=== PATIENT | female | born 1985 | race Caucasian/White ===

== ENCOUNTER 2018-04-30 07:00 | Inpatient (IN) | payer OTHER, SELFPAY ==
[2018-04-30 07:39] VITALS: BMI 28.8
[2018-04-30] MEDS: Lactated Ringers 1,000 ML 50 ML IV ×2 (07:50→11:53)
[2018-04-30 08:07] LABS: Hematocrit 36.5 % (37-47); Hemoglobin 12.4 g/dl (12.0-15.0); Mean Corpuscular Hgb 33.7 pg (27.0-32.0); Mean Corpuscular Volume 99.2 fL (81-99); Mean Platelet Vol. 10.4 fl (6.2-12.0); Platelet Count 172 K/mm3 (150-450); RBC Distribution Width SD 46.8 fl (35.1-43.9); Red Blood Count 3.68 M/mm3 (4.2-5.4); White Blood Count 11.5 K/mm3 (4.4-11.0)
[2018-04-30 08:08] LABS: Scan Indicated on CBC? Y/N NO
[2018-04-30] MEDS: Oxytocin 30 units/NS 500 ml 30 UNITS/500 ML IV.SOLN IV (08:16)
--- NOTE | 2018-04-30 09:12 | PCM.HP.OB ---
History Date of Admission: 04/30/18 Final LILIANA: 04/23/18 Final LILIANA Source: US <20 weeks Gestational age: 41 Weeks and 0 Days History of this : This is a 32 year-old, G [], P [], at 41 weeks gestational age. Allergies Penicillins Allergy (Verified 04/30/18 07:38) Hives Home Medications: Home Medications Vits [Prenatabs FA ] 1 tablet PO DAILY 11/01/15 Smoking Status: Never smoker Alcohol: None Heart Tracin's reactive TOCO Analysis: ctxs irreg, q 3-5' on 4 miu/minute Pitocin History Past Pregnancies: Past Pregnancies Delivery Date Name GA/Weeks Outcome Route Weight Infant Gender Labor Length Anesthesia Delivery Location Provider FOB Review of Systems Constitutional: Denies: Chills, Fever, Weight Change Cardiovascular: Denies: Chest Pain, Palpitations Gastrointestinal: Denies: Abdominal Pain, Nausea, Vomiting Genitourinary: Denies: Dysuria Musculoskeletal: Denies: Joint Pain, Joint Tenderness Skin: Denies: Rash, Wounds Neurological: Denies: Numbness, Tingling, Focal weakness Psychiatric: Denies: Anxiety, Depression, Homicidal Ideations, Suicidal Ideations Hematologic/ Lymphatic: Denies: Easy Bruising, Easy Bleeding Physical Exam General: Alert, Oriented x3, No apparent distress HEENT: Atraumatic, Normocephalic. Negative for: Thyromegaly, Lymphadenopathy Cardiovascular: Regular rate, Regular Rhythm Lungs: Clear to auscultation Abdomen: Bowel Sounds Present, Gravid Neurological: Deep Tendon Reflexes 2+/4 and Symmetrical, Neuro grossly intact VAMP SEAMER: Normal external genitalia. Negative for: Vulvar lesions Estimated gestational size: Appropriate for gestational size Presentation: Cephalic Cervix Dilation (cm): 4 Station: -2 Effacement (%): 75 Assessment/Plan This is a 32 year-old, G [], P [], at 41 weeks gestational age. Here for labor induction for postdates status GBBS neg Anticipate
--- NOTE | 2018-04-30 09:16 | HP.PCM_ITS ---
History Date of Admission: 04/30/18 Final LILIANA: 04/23/18 Final LILIANA Source: US <20 weeks Gestational age: 41 Weeks and 0 Days History of this : This is a 32 year-old, G [], P [], at 41 weeks gestational age. Allergies Penicillins Allergy (Verified 04/30/18 07:38) Hives Home Medications: Home Medications Vits [Prenatabs FA ] 1 tablet PO DAILY 11/01/15 Smoking Status: Never smoker Alcohol: None Heart Tracin's reactive TOCO Analysis: ctxs irreg, q 3-5' on 4 miu/minute Pitocin History Past Pregnancies: Past Pregnancies Delivery Date Name GA/Weeks Outcome Route Weight Infant Gender Labor Length Anesthesia Delivery Location Provider FOB Review of Systems Constitutional: Denies: Chills, Fever, Weight Change Cardiovascular: Denies: Chest Pain, Palpitations Gastrointestinal: Denies: Abdominal Pain, Nausea, Vomiting Genitourinary: Denies: Dysuria Musculoskeletal: Denies: Joint Pain, Joint Tenderness Skin: Denies: Rash, Wounds Neurological: Denies: Numbness, Tingling, Focal weakness Psychiatric: Denies: Anxiety, Depression, Homicidal Ideations, Suicidal Ideations Hematologic/ Lymphatic: Denies: Easy Bruising, Easy Bleeding Physical Exam General: Alert, Oriented x3, No apparent distress HEENT: Atraumatic, Normocephalic. Negative for: Thyromegaly, Lymphadenopathy Cardiovascular: Regular rate, Regular Rhythm Lungs: Clear to auscultation Abdomen: Bowel Sounds Present, Gravid Neurological: Deep Tendon Reflexes 2+/4 and Symmetrical, Neuro grossly intact IRS AGENT: Normal external genitalia. Negative for: Vulvar lesions Estimated gestational size: Appropriate for gestational size Presentation: Cephalic Cervix Dilation (cm): 4 Station: -2 Effacement (%): 75 Assessment/Plan This is a 32 year-old, G [], P [], at 41 weeks gestational age. Here for labor induction for postdates status GBBS neg Anticipate
--- NOTE | 2018-04-30 12:18 | PCM.HPOB.BLA ---
Progress Note LABOR PROGRESS NOTES. Stopped in to see patient at 0900 today, and Pitocin was at 4miu/minute. Ctxs are irreg q 3-5' and barely felt. FHR is category I. No VE done. plan was to await regular, moderate contractions. At 1215 returned to see pt who is receiving an epidural currently. FHR remains category I. Pitocin was up to 12 miu/minute, and patient began to feel ctxs so requested epidural. Will perform AROM once patient is comfortable.
[2018-04-30] MEDS: fentaNYL-bupivacaine (epidural) 100 ML BAG EPIDURAL (12:20)
[2018-04-30 13:04] LABS: HIV - WCH Non-Reactive (Nonreactive)
[2018-04-30 13:57] LABS: Chlamydia Trachomatis by PCR Negative (Negative); Neisserai gonorrhoeae by PCR Negative (Negative); Probe Check PASS; Sample Adequacy Control PASS; Specimen Processing Control PASS
[2018-04-30] MEDS: Oxytocin 30 units/NS 500 ml 30 UNITS/500 ML IV.SOLN 167 UNITS IV (15:05)
--- NOTE | 2018-04-30 15:29 | PCM.OB.VAG ---
Vaginal Delivery Maternal Presentation: Medically Indicated Induction Method of Induction: Pitocin Medical Reason for Induction: Post term Amniotic Membrane Rupture Type: Artificial Amniotic Fluid Description: Clear Final LILIANA: 04/23/18 Final LILIANA Source: US <20 weeks Gestational age: 41 Weeks and 0 Days Presentation: Vertex, ANNIE Placental Delivery Description: Expressed Placenta Disposition: [facility] Cord Vessel Description: 3 Vessels Cord Entanglement: None Drain: Luna to straight drain Estimated Blood Loss: 250 A gender: Male (1 minute): 8 (5 minute): 9 Episiotomy Description: None Laceration: Midline, Perineal Extension/lac, 1st degree Medications given after delivery: IV Pitocin Complications: None - Nuchal posterior arm, delivered before shoulders.
[2018-04-30] MEDS: 0.9% Saline Lock 10 ML Syringe IV (16:06)
[2018-04-30 17:44] VITALS: BP 127/71; PULSE 97; RESP 18; TEMP 37.2; O2SAT 98
[2018-04-30 19:35] VITALS: BP 133/70; PULSE 80; RESP 16; TEMP 36.9
[2018-05-01 00:05] VITALS: BP 122/69; PULSE 68; RESP 16; TEMP 36.7
[2018-05-01 03:49] VITALS: BP 116/62; PULSE 72; RESP 18; TEMP 37.3
[2018-05-01 06:06] LABS: Hematocrit 34.9 % (37-47); Hemoglobin 11.9 g/dl (12.0-15.0); Mean Corp Hgb Conc 34.1 g/gl (32-36); Mean Corpuscular Hgb 34.1 pg (27.0-32.0); Mean Platelet Vol. 10.6 fl (6.2-12.0); Platelet Count 164 K/mm3 (150-450); RBC Distribution Width SD 47.2 fl (35.1-43.9); Red Blood Count 3.49 M/mm3 (4.2-5.4); White Blood Count 13.6 K/mm3 (4.4-11.0)
[2018-05-01 06:07] LABS: Scan Indicated on CBC? Y/N NO
[2018-05-01 08:30] VITALS: BP 106/64; PULSE 92; RESP 16; TEMP 37.1; O2SAT 97
--- NOTE | 2018-05-01 09:10 | PCM.PN.OB ---
- Physical Exam General: Alert, Oriented x3, Cooperative, No apparent distress HEENT: Atraumatic, PERRLA, EOMI, Normocephalic Cardiovascular: Regular rate, No murmurs Abdomen: Bowel Sounds Present, Soft, Non Tender - uterus firm at umb-2cm Extremities: No edema Musculoskeletal: No Tenderness to Palpation of Joints or Extremities Psych/Mental Status: Normal Affect, Appropriate Vital Signs Temp Pulse Resp BP Pulse Ox 98.8 F 92 16 106/64 97 05/01/18 08:30 05/01/18 08:30 05/01/18 08:30 05/01/18 08:30 05/01/18 08:30 Oxygen Delivery Method Room Air Weight: 76.204 kg Body Mass Index (BMI) 28.8 Intake and Output for Last 24 Hours 04/29/18 04/30/18 05/01/18 23:59 23:59 23:59 Intake Total 3218 / 3218 Output Total 1200 / 1200 Balance 2017 Laboratory Tests Past 24 Hrs 04/30/18 04/30/18 04/30/18 07:50 07:50 08:43 WBC RBC Hgb Hct MCV MCH MCHC RDW RDW Differential Plt Count MPV Chlam trachomat DNA PCR Negative HIV 1&2 Antibody Non-Reactive N.gonorrhoeae DNA (PCR) Negative Blood Type O POSITIVE Antibody Screen NEGATIVE 05/01/18 05:25 WBC 13.6 H RBC 3.49 L Hgb 11.9 L Hct 34.9 L MCV 100.0 H MCH 34.1 H MCHC 34.1 RDW 13.0 RDW Differential 47.2 H Plt Count 164 MPV 10.6 Chlam trachomat DNA PCR HIV 1&2 Antibody N.gonorrhoeae DNA (PCR) Blood Type Antibody Screen Medical Necessity - Tobacco Use Smoking Status: Never smoker Assessment/Plan This is a 32 year-old, G [], P [], at 41 weeks gestational age. s/p uncomplicated after Pitocin induction. male 8lb 11oz, Apgars 8&9 Home today . No meds desired.
--- NOTE | 2018-05-01 09:14 | PCM.DCVAG ---
Discharge Activity: Return to Normal Activity - slowly May resume sexual activity in: 4-6 weeks Call your doctor if you observe: Fever of 101 or Higher, Inability to urinate, Using more than one pad per hour, Calf discomfort, Uncontrolled pain Additional Instructions: If you experience any of the following, contact your healthcare provider. Bleeding that soaks a pad every hour for 2 hours Fever 100.4 or higher Unrelieved incision or abdominal pain Swelling, redness, discharge or bleeding from your incision or episiotomy site Your incision begins to separate Problems urinating (including inability to urinate or burning while urinating). Visual changes Severe headache Flu-like symptoms Pain or redness in one of both of your breasts Pain, warmth, tenderness or swelling in your legs, especially the calf area Frequent nausea and vomiting Symptoms of depression or anxiety If you experience any of the following, call 911 or go to the nearest Emergency Room. Chest pain Problems breathing Seizure activity Partial or complete paralysis of a body part, slurred speech, weakness or drooping of the face, or a sudden inability to walk or hold your balance Allergies/Adverse Reactions: Allergies Penicillins Allergy (Verified 04/30/18 07:38) Hives Medications to take at Discharge Vits [Prenatabs FA ] 1 tablet PO DAILY 11/01/15 Please Follow Up With: Omaira Camp MD When: 6wks Primary Care Physician: Radha Darnell PA [Primary Care Provider] - Test Results: Test results from this visit will be discussed in further detail at your follow-up appointment, if applicable.
--- NOTE | 2018-05-01 09:17 | DCINST_ITS ---
Discharge Activity: Return to Normal Activity - slowly May resume sexual activity in: 4-6 weeks Call your doctor if you observe: Fever of 101 or Higher, Inability to urinate, Using more than one pad per hour, Calf discomfort, Uncontrolled pain Additional Instructions: If you experience any of the following, contact your healthcare provider. * Bleeding that soaks a pad every hour for 2 hours * Fever 100.4 or higher * Unrelieved incision or abdominal pain * Swelling, redness, discharge or bleeding from your incision or episiotomy site * Your incision begins to separate * Problems urinating (including inability to urinate or burning while urinating) . * Visual changes * Severe headache * Flu-like symptoms * Pain or redness in one of both of your breasts * Pain, warmth, tenderness or swelling in your legs, especially the calf area * Frequent nausea and vomiting * Symptoms of depression or anxiety If you experience any of the following, call 911 or go to the nearest Emergency Room. * Chest pain * Problems breathing * Seizure activity * Partial or complete paralysis of a body part, slurred speech, weakness or drooping of the face, or a sudden inability to walk or hold your balance Allergies/Adverse Reactions: Allergies Penicillins Allergy (Verified 04/30/18 07:38) Hives Medications to take at Discharge Vits [Prenatabs FA ] 1 tablet PO DAILY 11/01/15 Please Follow Up With: Omaira Camp MD When: 6wks Primary Care Physician: Radha Darnell PA [Primary Care Provider] - Test Results: Test results from this visit will be discussed in further detail at your follow- up appointment, if applicable.
[2018-05-01 12:00] VITALS: BP 117/66; PULSE 84; RESP 14; TEMP 36.8; O2SAT 97
[2018-05-01 15:31] VITALS: BP 115/62; PULSE 80; RESP 16; TEMP 36.9; O2SAT 98
--- NOTE | 2018-05-01 16:30 | CASEMGMT ---
Social Work Brief Assessment - Labor and Delivery Unit Date of Referral/Notification: 04/30/2018 Time of Referral: 1825 Referred By: Dr. Moreau Reason for Referral: maternal history of depression Date of Intervention: 05/01/2018 Informant: Medical record and patient/mother of baby (MOB) Reshma Dumont History: EAGLE is a 32 years old female, delivering 2nd child, Dale Dumont, this admission. MOB has an older child, Jay Dumont (born 3.16[birth year]16) at home. The Father of baby, to both children, is Chris Dumont, to whom MOB is . 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 FOB works as a [employer]. MOB denies any safety concerns at home or with FOB. MOB reports good support from FOB and from MOBs mother. MOB reports history of depression after Jay was born, mostly experiencing anxiety. No reports of any thoughts, plans, intent for suicide at that time, nor any currently or during . MOB denies any history of substance use or abuse. Denies any type of agency involvement. Assessment: MOB reports to feel better this time around, feels more prepared and to know what to expect. MOB reports her mother is a strong support and one that MOB can talk to if needed. MOB reports will have help at home going from family, reports to have needed supplies for the baby as well. MOB listened to education on mood and anxiety disorders, risk factors, and importance of seeking out help and support if needed. MOB accepting of depression packet today, including local and online supports in case MOB wants or needs to pursue extra support down the road. MOB reports to feel good about the baby, and to love the baby. MOB denies any concerns with home going. MOB pleasant, cooperative, held good eye contact during social work visit. No reports by nursing of any concerns relating to mother/professor of early childhood education and bonding. Plan: MOB and baby to home when ready for discharge. Resources for depression provide, including both local and online supports. No further needs requested or indicated. -MAYA Johnson, [employer]
--- NOTE | 2018-07-23 17:44 | PCM.HPOB.BLA ---
History and Physical Date of Admission: 04/30/18 ADDENDUM TO VAGINAL DELIVERY NOTE Patient was encouraged to push and delivered the infant spontaneously over a midline tear, with a posterior nuchal arm delivered before shoulders. The thirs stage was managed actively for delivery of a complete placenta. The tear -1st degree midline was repaired in standard fashion with #3-0 Vicryl for good hemostasis. Patient tolerated the delivery very well.
== END 2018-05-01 17:00 | disposition home or self-care (01) | DRG 775 ==
PROVIDERS: Admitting Provider Obstetrics & Gynecology Gynecology; Family Provider Physician Assistant; PCP Physician Assistant; Visit Provider Obstetrics & Gynecology Gynecology
DX: O48.0 Post-term pregnancy (principal); Z3A.41 41 weeks gestation of pregnancy; O70.0 First degree perineal laceration during delivery; O69.81X0 Labor and delivery complicated by cord around neck, without compression, not applicable or unspecified; Z37.0 Single live birth
CPT/HCPCS: 59025; 59050; 85027; 86703; 86850; 86900; 87491; 87591; 99218; J7120; A4216; G0378

== ENCOUNTER 2018-05-05 10:30 | Outpatient (CLI) | payer OTHER, SELFPAY | END 2018-05-05 11:10 | disposition home or self-care (01) | LOC: WPOUT 10:39 → WP 10:40 | PROVIDERS: Family Provider Physician Assistant; PCP Physician Assistant; Visit Provider Obstetrics & Gynecology Gynecology | DX: Z39.1 Encounter for care and examination of lactating mother (principal) | CPT/HCPCS: 96152 ==

== ENCOUNTER 2018-05-19 00:49 | Emergency (ER) | payer OTHER, SELFPAY ==
[2018-05-19 00:51] VITALS: BP 119/77; PULSE 65; RESP 17; TEMP 36.7; O2SAT 100; BMI 23.8
--- NOTE | 2018-05-19 01:05 | CT_ITS ---
STUDY: CT ABDOMEN AND PELVIS WITHOUT CONTRAST REASON FOR EXAM: Female, 32 years old. Right-sided flank pain and urinary frequency, status post delivery 2 weeks ago RADIATION DOSAGE (If Supplied By Facility): CTDIvol = ( 6.64 ) mGy, DLP = ( 305.44 ) mGycm TECHNIQUE: Transaxial images were obtained from the dome of the diaphragm to the symphysis pubis without oral contrast, and without intravenous contrast. Sagittal and coronal images were reconstructed. Individualized dose optimization techniques were used for this CT. COMPARISON: None. FINDINGS: The visualized lung bases are unremarkable. The visualized portions of the heart are within normal limits. Normal liver. Normal gallbladder and extrahepatic biliary system. Normal spleen. Normal pancreas. Normal bilateral adrenal glands. 5 mm stone in the distal right ureter at the level of the ureterovesical junction. There are changes of severe acute obstructive uropathy on the right. Severe right hydroureter is present with a ureter diameter of up to 2.7 cm. Multiple nonobstructing left renal stones, the largest measuring 5 mm. Normal visualized stomach. Normal small intestine. Normal colon. The appendix is visualized and appears normal. Normal abdominal aorta. Normal inferior vena cava. Normal retroperitoneum. Normal urinary bladder. Retroverted uterus. Normal abdominal wall. Normal osseous structures. CT/Abdomen/Pelvis without Cont IMPRESSION: 5 mm stone in the distal right ureter at the level of the ureterovesical junction. There are changes of severe acute obstructive uropathy on the right. Severe right hydroureter is present with a ureter diameter of up to 2.7 cm. Electronically Signed: Gorge Mercado MD at 1:55 EDT Tel , Service support ,
[2018-05-19] MEDS: Ondansetron 4 MG/2 ML Vial IV (01:09)
[2018-05-19] MEDS: Ketorolac 30 MG/ML Syringe IV (01:10)
[2018-05-19 01:13] LABS: Bacteria 0 SEEN /hpf (None Seen); Mucous, Urine 0 SEEN /hpf (<or=2+); Squamous Epithelial Cells - UA 0 SEEN /hpf (5-10)
--- NOTE | 2018-05-19 01:13 | ED.DCSUM_ITS ---
- ER Visit Summary Date of Service: 05/19/18 Chief Complaint: Right flank pain History of Present Illness: The patient is a 32 F who presents with a right- sided flank pain of 2-3-hour duration. Patient states it was sudden onset sharp and stabbing in nature wrapping slightly to the front. She notes that she feels the need to urinate frequently but does not typically have any urine come out. No history of kidney stones. She denies dysuria. No fevers. Does note some slight nausea. Patient is 2 weeks and is breast-feeding. Physical Examination: Afebrile vital signs are stable Gen: Well-nourished well-developed Head: Normocephalic atraumatic Eyes: Perrl EOMI ENT: TMs clear no rhinorrhea moist mucous membranes Neck: Supple no lymphadenopathy no JVD nontender CVS: Regular rate rhythm no murmurs normal S1-S2 Respiratory: No distress clear to auscultation bilaterally chest nontender Abdomen: Soft nontender nondistended normal bowel sounds no masses Back: Mild right CVA tenderness Extremity: Nontender no edema Skin: Normal color no rash Neuro: alert orientated ?3 CN II-XII intact normal strength sensation reflexes gait cerebellar Psych: Normal affect normal mood Test Results: CBC with a leukocytosis at 11. Creatinine at 1. Urinalysis with no overt infection -5-10 red blood cells and 5-10 white blood cells 0 bacteria 1+ yeast. CT demonstrates severe hydronephroureter on the right due to ureteral stone. Emergency Department Course and Treatment: Patient received Toradol and Zofran. I spoke with the patient regarding treatment. Patient was advised that she needs to see urology as soon as possible and unfortunately [facility] We talked about possibly transferring to [facility]. Being that there is a at home we will attempt to do this as an outpatient with early follow-up. Patient was given return instructions with a low threshold for need to return. She wishes to avoid medications that would be harmful in breastmilk. Patient got good relief with the Toradol here and I will prescribe that. Impression: 1. Right 5 mm ureterallithiasis 2. Severe hydronephroureter This note was generated with [employer] dictation software. It may contain incorrect words, spelling, and punctuation that were not noted in review of the chart prior to signing ED Disposition - Plan for ED Patient: Disposition: Home or Assisted Living Chief Complaint: Flank Pain Instructions: ED Stone Renal W Colic Prescriptions: Ondansetron [Zofran Odt] 4 mg PO 4X/DAY PRN PRN #12 tab.rapdis PRN Reason: Nausea Ketorolac [Toradol] 10 mg PO Q6H PRN #12 tab PRN Reason: Pain Referrals: Manuel Zuniga MD [STAFF PHYSICIAN] - As soon as possible Becka Newman MD [STAFF PHYSICIAN] - As soon as possible Additional Instructions: If you cannot ensure early follow-up please return to the emergency department If your pain is not controlled or you please return to the emergency department
[2018-05-19 01:21] LABS: Color, Urine Yellow (Yellow); Glucose, Dipstick Normal (Normal); Ketone-Dipstick Negative (Negative); Leukocyte Esterase-Dipstick 500 /ul (Negative); Nitrite-Dipstick Negative (Negative); Occult Blood-Urine 250 /ul (Negative); Protein-Dipstick 15 mg/dl (Negative); Urine Bilirubin Dipstick Negative (Negative); Urine Clarity Sl. Cloudy (Clear); Urine Urobilinogen Normal (Normal)
[2018-05-19 01:22] LABS: Internal QC Validated? YES +Cl - CLEAR BKGD; Pregnancy, Urine Negative Negative
[2018-05-19 01:29] LABS: Red Blood Cells-Urine 5-10 SEEN /hpf (0-5); White Blood Cells 5-10 SEEN /hpf (0-5); Yeast-Urine 1+ /hpf (None Seen)
[2018-05-19 02:06] LABS: Absolute Lymphocyte Count 2.23 X10^3/ul (0.83-4.51); Basophil# 0.02 X10^3/uL; Basophil% 0.2 % (0-1); Eosinophil# 0.29 X10^3/uL; Eosinophils% 2.5 % (0-5); Hemoglobin 14.1 g/dl (12.0-15.0); Lymphocyte # 2.23 X10^3/ul (4.0); Lymphocyte % 19.3 % (19-41); Mean Corp Hgb Conc 33.6 g/gl (32-36); Mean Corpuscular Hgb 33.3 pg (27.0-32.0); Mean Corpuscular Volume 99.3 fL (81-99); Mean Platelet Vol. 10.2 fl (6.2-12.0); Monocyte# 1.01 X10^3/uL; Monocyte% 8.8 % (0-10); Neutrophil # 7.95 X10^3/uL (2.7-7.7); Neutrophil % 68.9 % (47-70); POSITIVE COUNT NO; POSITIVE DIFFERENTIAL NO; POSITIVE MORPHOLOGY NO; Platelet Count 205 K/mm3 (150-450); RBC Distribution Width CV 11.8 % (11.6-14.6); RBC Distribution Width SD 42.6 fl (35.1-43.9); Red Blood Count 4.23 M/mm3 (4.2-5.4); White Blood Count 11.5 K/mm3 (4.4-11.0)
[2018-05-19 02:14] LABS: Anion Gap 8 (5-15); BUN 20 mg/dL (7-18); Calcium,Total 8.5 mg/dL (8.5-10.1); Chloride 107 mmol/L (98-107); EST Glomerular Filtration Rate 68 mL/min (>60); Est Glom Filt Rate - Afr Amer 83 mL/min (>60); Estimated Creatinine Clearance 70.39 ml/min; Glucose 99 mg/dL (74-106); Potassium 3.6 mmol/L (3.5-5.1); Sodium Level 140 mmol/L (136-145)
[2018-05-19] MEDS: Ketorolac 10 MG Tablet PO (02:45)
[2018-05-19 02:48] VITALS: BP 108/68; PULSE 64; RESP 17; O2SAT 98
--- NOTE | 2018-05-19 02:50 | ED.RN ---
IV DC'ED, CATHETER INTACT, SMALL GAUZE DRESSING PLACED. DISCHARGE INSTRUCTIONS GIVEN TO AND REVIEWED WITH PATIENT, PATIENT DENIES QUESTIONS OR CONCERNS AND VOICES UNDERSTANDING OF DISCHARGE INSTRUCTIONS. PATIENT AMBULATES OUT OF ROOM WITHOUT DIFFICULTY.
== END 2018-05-19 02:51 | disposition home or self-care (01) ==
PROVIDERS: Emergency Provider Emergency Medicine; Family Provider Physician Assistant; PCP Physician Assistant
DX: O90.89 Other complications of the puerperium, not elsewhere classified (principal); N13.2 Hydronephrosis with renal and ureteral calculous obstruction
CPT/HCPCS: 74176; 80048; 81001; 81025; 85025; 99284; J7030; J2405

== ENCOUNTER → 2018-06-09 15:04 | Outpatient (CLI) | payer OTHER, SELFPAY ==
--- NOTE | 2018-06-09 15:06 | RAD_ITS ---
STUDY: X-RAY - ABDOMEN/PELVIS REASON FOR EXAM: Female, 32 years old. Kidney stone TECHNIQUE: Single AP view of the abdomen / pelvis. COMPARISON: CT May 19, 2018 FINDINGS: Normal visualized lung bases. There is an unremarkable bowel gas pattern. There is no demonstrated free abdominal air. The visualized liver, spleen and kidneys are grossly normal in size and morphology. There is small increased density over the left kidney consistent with stone seen on CT. Stone seen in the distal ureter on CT is not appreciated. There is overlying stool in the right lower pelvis. Normal visualized osseous structures. RAD/Abdomen Single View IMPRESSION: Small left abdominal calcification. Electronically Signed: Tejas Garcia MD at 15:26 EDT , Service support ,
== END ==
PROVIDERS: Family Provider Physician Assistant; PCP Physician Assistant; Referring Provider Nurse Practitioner Adult Health; Visit Provider Nurse Practitioner Adult Health
DX: N20.0 Calculus of kidney (principal)
CPT/HCPCS: 74018

== ENCOUNTER 2020-02-03 18:52 | Inpatient (IN) | payer OTHER, SELFPAY ==
[2020-02-03] VITALS (8 sets, daily range): BP systolic 94–109; BP diastolic 52–72; PULSE 77–102; TEMP 36.5–37.1; O2SAT 98; BMI 28.3
[2020-02-03] MEDS: Lactated Ringers 1,000 ML 50 ML IV (20:04)
[2020-02-03 20:06] LABS: Absolute Lymphocyte Count 1.55 X10^3/uL (0.83-4.51); Absolute Neutrophil Count 9.5 X10^3/uL (2.0-7.7); Basophil# 0.03 X10^3/uL; Basophil% 0.2 % (0-1); Eosinophil# 0.06 X10^3/uL; Eosinophils% 0.5 % (0-5); Hematocrit 36.3 % (37-47); Lymphocyte # 1.55 X10^3/ul (4.0); Lymphocyte % 12.6 % (19-41); Mean Corp Hgb Conc 33.1 g/dL (32-36); Mean Corpuscular Hgb 33.8 pg (27.0-32.0); Mean Corpuscular Volume 102.3 fL (81-99); Mean Platelet Vol. 10.1 fl (6.2-12.0); Monocyte# 1.09 X10^3/uL; Monocyte% 8.8 % (0-10); NRBC Flagged by Analyzer 0 % (0-5); Neutrophil # 9.47 X10^3/uL (2.7-7.7); Neutrophil % 76.9 % (47-70); POSITIVE COUNT YES; Platelet Count 183 K/mm3 (150-450); RBC Distribution Width CV 12.8 % (11.6-14.6); RBC Distribution Width SD 47.6 fl (35.1-43.9); Red Blood Count 3.55 M/mm3 (4.2-5.4); White Blood Count 12.3 K/mm3 (4.4-11.0)
[2020-02-03] MEDS: Oxytocin 30 units/NS 500 ml 30 UNITS/500 ML IV.SOLN IV (20:36)
[2020-02-03 20:55] LABS: Differential Indicated SCAN CRITERIA MET
[2020-02-03 20:56] LABS: Platelet Estimate ADEQUATE (ADEQ); Red Cell Morphology NORM C+C NORMAL (NORM C&C)
[2020-02-04] VITALS (46 sets, daily range): BP systolic 77–129; BP diastolic 43–84; PULSE 70–103; RESP 14–16; TEMP 36.2–36.8; O2SAT 89–100
[2020-02-04] MEDS: Lactated Ringers 500 ML 999 ML IV ×2 (01:29→02:45)
[2020-02-04] MEDS: fentaNYL-bupivacaine (epidural) 100 ML BAG EPIDURAL (02:15)
[2020-02-04] MEDS: ePHEDrine Sulfate 50 MG/ML Ampul 10 MG IV (02:45)
[2020-02-04] MEDS: Lactated Ringers 1,000 ML 200 ML IV (03:23)
[2020-02-04] MEDS: Oxytocin 30 units/NS 500 ml 30 UNITS/500 ML IV.SOLN 200 UNITS IV (06:26)
--- NOTE | 2020-02-04 06:44 | PCM.OPRPT ---
Vaginal Delivery Maternal Presentation: Medically Indicated Induction Method of Induction: Pitocin Medical Reason for Induction: Maternal Medical Condition: list: - postdates Amniotic Membrane Rupture Type: Artificial Rupture of Membrane time: 224 Amniotic Fluid Description: Clear Final LILIANA: 01/28/20 Final LILIANA Source: US <20 weeks Gestational age: 41 Weeks and 0 Days Date of Procedure: 02/04/20 Pre-Operative Diagnosis: Term IUP Post-Operative Diagnosis: same Surgery/ Procedure Performed: Spontaneous Vaginal Delivery Type of Anesthesia: Epidural Presentation: Vertex, KEITH Placental Delivery Description: Expressed Placenta Disposition: [facility] Cord Vessel Description: 3 Vessels Cord Entanglement: Around neck x 1, loose, Around neck x 1, tight Drain: Luna to straight drain Infant A gender: Female (1 minute): 8 (5 minute): 9 Episiotomy Description: None, 1st degree Laceration: Midline, 1st degree Medications given after delivery: IV Pitocin Complications: None - NO FHR concerns, and tight nuchal cord only noted at delivery. Very short 2nd stage
[2020-02-04] MEDS: 0.9% Saline Lock 10 ML Syringe IV (07:38)
[2020-02-04] MEDS: Ibuprofen 600 MG Tablet PO ×2 (08:02→13:48)
[2020-02-05 04:15] VITALS: BP 105/57; PULSE 72; RESP 14; TEMP 36.7
[2020-02-05 07:37] VITALS: BP 111/62; PULSE 88; RESP 16; TEMP 36.4
--- NOTE | 2020-02-05 08:09 | DCINST_ITS ---
Discharge Activity: May Not Drive, May Shower - no tub Return to work on:: 03/21/20 May shower in (days): 0 May resume sexual activity in: 4-6 weeks Call your doctor if you observe: Fever of 101 or Higher, Inability to urinate, Using more than one pad per hour, Dizziness, Swelling in the ankles Additional Instructions: If you experience any of the following, contact your healthcare provider. * Bleeding that soaks a pad every hour for 2 hours * Fever 100.4 or higher * Unrelieved incision or abdominal pain * Swelling, redness, discharge or bleeding from your incision or episiotomy site * Your incision begins to separate * Problems urinating (including inability to urinate or burning while urinating). * Visual changes * Severe headache * Flu-like symptoms * Pain or redness in one of both of your breasts * Pain, warmth, tenderness or swelling in your legs, especially the calf area * Frequent nausea and vomiting * Symptoms of depression or anxiety If you experience any of the following, call 911 or go to the nearest Emergency Room. * Chest pain * Problems breathing * Seizure activity * Partial or complete paralysis of a body part, slurred speech, weakness or drooping of the face, or a sudden inability to walk or hold your balance Allergies/Adverse Reactions: Allergies Penicillins Allergy (Verified 05/19/18 00:50) Hives Medications to take at Discharge Vits [Prenatabs FA ] 1 tablet PO DAILY 11/01/15 Orders to be completed after discharge: Electric breast pump Time Frame: 1 Year, Location: None Selected Please Follow Up With: Omaira Camp MD When: 4wks Primary Care Physician: Radha Darnell PA [Primary Care Provider] - Test Results: Test results from this visit will be discussed in further detail at your follow- up appointment, if applicable. Proposed Discharge Date: 02/05/20
--- NOTE | 2020-02-05 08:09 | PCM.DCVAG ---
Discharge Activity: May Not Drive, May Shower - no tub Return to work on:: 03/21/20 May shower in (days): 0 May resume sexual activity in: 4-6 weeks Call your doctor if you observe: Fever of 101 or Higher, Inability to urinate, Using more than one pad per hour, Dizziness, Swelling in the ankles Additional Instructions: If you experience any of the following, contact your healthcare provider. Bleeding that soaks a pad every hour for 2 hours Fever 100.4 or higher Unrelieved incision or abdominal pain Swelling, redness, discharge or bleeding from your incision or episiotomy site Your incision begins to separate Problems urinating (including inability to urinate or burning while urinating). Visual changes Severe headache Flu-like symptoms Pain or redness in one of both of your breasts Pain, warmth, tenderness or swelling in your legs, especially the calf area Frequent nausea and vomiting Symptoms of depression or anxiety If you experience any of the following, call 911 or go to the nearest Emergency Room. Chest pain Problems breathing Seizure activity Partial or complete paralysis of a body part, slurred speech, weakness or drooping of the face, or a sudden inability to walk or hold your balance Allergies/Adverse Reactions: Allergies Penicillins Allergy (Verified 05/19/18 00:50) Hives Medications to take at Discharge Vits [Prenatabs FA ] 1 tablet PO DAILY 11/01/15 Orders to be completed after discharge: Electric breast pump Time Frame: 1 Year, Location: None Selected Please Follow Up With: Omaira Camp MD When: 4wks Primary Care Physician: Radha Darnell PA [Primary Care Provider] - Test Results: Test results from this visit will be discussed in further detail at your follow-up appointment, if applicable. Proposed Discharge Date: 02/05/20
--- NOTE | 2020-02-05 08:13 | PN.OBGYN_ITS ---
Subjective: No concerns. Feels well. - Physical Exam Vitals/I&O's: Vital Signs Temp Pulse Resp BP Pulse Ox 97.6 F L 88 16 111/62 97 02/05/20 07:37 02/05/20 07:37 02/05/20 07:37 02/05/20 07:37 02/04/20 16:35 Oxygen Delivery Method Room Air Weight: 74.843 kg Body Mass Index (BMI) 28.3 Intake and Output for Last 24 Hours 02/03/20 02/04/20 02/05/20 23:59 23:59 23:59 Intake Total 520.74 / 520.74 3003.90 / 3003.90 Output Total 300 / 300 800 / 800 Balance 220.74 / 220.74 2203.90 / 2203.90 General: Alert, Oriented x3 HEENT: Atraumatic Lungs: Clear to auscultation Cardiovascular: Regular rate, Regular Rhythm Abdomen: Soft, Non Tender - Uterus firm, 2cm below umb. Extremities: No edema, No Calf Tenderness Psych/Mental Status: Normal Affect, Alert and oriented to time, place, person, mood and affect Current Medications Acetaminophen (Tylenol) 325 - 650 mg PO Q4H PRN PRN PRN Reason: Pain Score 1-3/10 Acetaminophen (Tylenol) 1,000 mg PO Q8H PRN PRN PRN Reason: Pain Score 1-3/10 Al Hydroxide/Mg Hydroxide (Mylanta Ii) 15 - 30 ml PO Q4H PRN PRN PRN Reason: INDIGESTION Bisacodyl (Dulcolax) 10 mg RECTAL UD PRN PRN Reason: If no BM Citric Acid/Sodium Citrate (Bicitra) 30 ml PO X1 PRN PRN Reason: Section Dibucaine (Dibucaine) 1 applic TOPICAL TID PRN PRN; Protocol PRN Reason: Discomfort Ephedrine Sulfate () 10 mg IV Q10M PRN PRN Reason: hypotension Last Admin: 02/04/20 02:45 Dose: 10 mg Documented by: Ephedrine Sulfate () 10 mg IM Q30M PRN PRN Reason: hypotension Fentanyl Citrate (Sublimaze (100mcg Ampule)) 25 - 50 mcg IV Q2H PRN PRN PRN Reason: Pain Score 4-10/10 Fentanyl/Bupivacaine/Sodium Chlor () 0 ml EPIDURAL UD VAL; Protocol Last Admin: 02/05/20 01:26 Dose: Not Given Documented by: Hydrocortisone (Hytone) 1 applic TOPICAL TID PRN PRN; Protocol PRN Reason: Discomfort Lactated Ringer's () 500 mls @ 999 mls/hr IV .Q31M PRN PRN Reason: Epidural Last Infusion: 02/04/20 02:01 Dose: Infused Documented by: Lactated Ringer's () 500 mls @ 999 mls/hr IV .Q31M PRN PRN Reason: Corrective Measures Last Infusion: 02/04/20 03:20 Dose: Infused Documented by: Lactated Ringer's () 1,000 mls @ 50 mls/hr IV .Q20H [facility] Last Infusion: 02/04/20 06:26 Dose: Infused Documented by: Oxytocin/Sodium Chloride () 30 units in 500 mls @ 2 mls/hr IV .Q250H [facility] Last Infusion: 02/04/20 06:26 Dose: Infused Documented by: Naloxone HCl 4 mg/ Dextrose 504 mls @ 0 mls/hr IV .Q0M PRN; Protocol PRN Reason: To maintain Resp. rate >10 Ibuprofen (Motrin) 600 mg PO Q6H [facility] Last Admin: 02/05/20 01:26 Dose: Not Given Documented by: Methylergonovine Maleate (Methergine) 0.2 mg IM X1 PRN PRN Reason: Excess bleeding/uterine atony Nalbuphine HCl (Nubain) 5 mg IV Q3H PRN PRN PRN Reason: ITCHING Naloxone HCl (Narcan) 0.02 mg IV Q1M PRN PRN Reason: RR< 10 AND PT UNRESPONSIVE Ondansetron HCl (Zofran) 4 mg IV Q4H PRN PRN PRN Reason: Nausea Prochlorperazine Edisylate (Compazine Iv) 10 mg IV Q6H PRN PRN PRN Reason: NAUSEA Senna/Docusate Sodium (Senokot-S, Mirna-Colace) 1 - 2 tablet PO DAILY PRN PRN PRN Reason: Constipation Simethicone (Mylicon) 80 mg PO [facility] PRN PRN Reason: Indigestion/Stomach pain Sodium Chloride () 5 - 15 ml IV UD PRN PRN Reason: SALINE FLUSH Medical Necessity - Tobacco Use Smoking Status: Never smoker Assessment/Plan All Active Problems care and examination (Acute) examination following vaginal delivery (Acute) Doing well. For likely discharge today.
[2020-02-05 09:17] LABS: Absolute Lymphocyte Count 1.74 X10^3/uL (0.83-4.51); Absolute Neutrophil Count 10.1 X10^3/uL (2.0-7.7); Basophil# 0.03 X10^3/uL; Basophil% 0.2 % (0-1); Eosinophil# 0.07 X10^3/uL; Eosinophils% 0.5 % (0-5); Hematocrit 37.6 % (37-47); Hemoglobin 12.5 g/dL (12.0-15.0); Lymphocyte # 1.74 X10^3/ul (4.0); Lymphocyte % 13.3 % (19-41); Mean Corp Hgb Conc 33.2 g/dL (32-36); Mean Corpuscular Hgb 33.7 pg (27.0-32.0); Mean Corpuscular Volume 101.3 fL (81-99); Mean Platelet Vol. 9.7 fl (6.2-12.0); Monocyte# 1.07 X10^3/uL; Monocyte% 8.2 % (0-10); NRBC Flagged by Analyzer 0 % (0-5); Neutrophil # 10.08 X10^3/uL (2.7-7.7); Neutrophil % 77.1 % (47-70); Platelet Count 181 K/mm3 (150-450); RBC Distribution Width CV 12.9 % (11.6-14.6); RBC Distribution Width SD 47.5 fl (35.1-43.9); Red Blood Count 3.71 M/mm3 (4.2-5.4); White Blood Count 13.1 K/mm3 (4.4-11.0)
== END 2020-02-05 09:55 | disposition home or self-care (01) | DRG 807 ==
PROVIDERS: Admitting Provider Obstetrics & Gynecology Gynecology; PCP Physician Assistant; Referring Provider Obstetrics & Gynecology Gynecology; Visit Provider Obstetrics & Gynecology Gynecology
DX: O48.0 Post-term pregnancy (principal); Z37.0 Single live birth; Z3A.41 41 weeks gestation of pregnancy; O70.0 First degree perineal laceration during delivery; O69.1XX0 Labor and delivery complicated by cord around neck, with compression, not applicable or unspecified
CPT/HCPCS: 59025; 59050; 85025; 86850; 86900; 86901; 87635; 99218; G2023; J7120; A4216; G0378; U0003